=== PATIENT | male | born 1990 | race Caucasian/White ===

== ENCOUNTER 2017-12-30 22:53 | Emergency (ER) | payer BC ==
[~2017-12-30] VITALS: Ht 177.8 cm; Wt 154.8 kg
[2017-12-30 23:41] LABS: HEMATOCRIT 43.2 % (38.0-50.0); HEMOGLOBIN 14.8 G/DL (12.5-16.6); MCH 29.8 PG (29.0-34.0); MCHC 34.3 G/DL (30.0-36.0); MCV 87.1 FL (86-99); PLATELET COUNT 335 K/uL (156-360); RBC DIS.WIDTH-CV 12.6 % (11.8-14.6); RBC DIS.WIDTH-SD 39.8 % (39-53); RED BLOOD COUNT 4.96 M/uL (4.00-5.50); WHITE BLOOD COUNT 7.9 K/uL (4.1-10.2)
[2017-12-30 23:51] LABS: SOURCE URINE
[2017-12-30 23:53] LABS: CHLORIDE 105 mEq/L (99-109); SODIUM 142 mEq/L (136-147)
[2017-12-30 23:55] LABS: GLUCOSE 97 mg/dL (70-99)
[2017-12-30 23:56] LABS: APPEARANCE SL.HAZY ((CLEAR)); BILIRUBIN NEGATIVE; BLOOD NEGATIVE; COLOR YELLOW ((YELLOW)); GLUCOSE (STRIP) NEGATIVE; KETONES NEGATIVE; LEUKOCYTES NEGATIVE; NITRITE NEGATIVE; PROTEIN (STRIP) NEGATIVE; SPECIFIC GRAVITY 1.025 (1.000-1.030); UROBILINOGEN 0.2 MG/DL (0.2-1.0)
[2017-12-30 23:59] LABS: CREATININE 0.8 mg/dL (0.6-1.3); GFR ESTIMATE (CALCULATED) > 59 mL/min/ (58.99-99999)
[2017-12-31] LABS: UREA NITROGEN (BUN) 11 mg/dL (9-23)
[2017-12-31 00:23] LABS: BACTERIA NONE SEEN /HPF; EPITHELIAL CELLS NONE SEEN /HPF; MUCUS 2+ /LPF; RED BLOOD CELLS 0-5 /HPF (0-5); UCUL ADDED? NO; WHITE BLOOD CELLS 0-5 /HPF (0-5)
[2017-12-31] MEDS ORDERED: KEFLEX500 MG PO (00:47)
[2017-12-31 00:58] VITALS: BP 137/94
[2017-12-31 01:24] LABS: C-REACTIVE PROTEIN 55.5 MG/L (0-10)
[2018-01-01 12:33] LABS: CHLAMYDIA TRACHOMATIS NEGATIVE; NEISSERIA GONORRHOEAE NEGATIVE
== END 2017-12-31 00:58 | disposition home or self-care (01) ==
LOC: EME 22:53
PROVIDERS: Nurse Practitioner Family
DX: N48.1 Balanitis (principal); Z88.2 Allergy status to sulfonamides; Z88.0 Allergy status to penicillin
CPT/HCPCS: 80048; 81003; 85027; 86140; 87491; 87591; 99281; 99284